=== PATIENT | female | born 1980 | race Asian ===

== ENCOUNTER 2016-08-17 08:01 | Emergency (ER) | payer BC, OTHER ==
[~2016-08-17] VITALS: Ht 157.5 cm; Wt 75.0 kg
--- NOTE | 2016-08-17 08:37 | NUR ---
US STATES THAT THE PROCEDURE CAN NOT BE DONE UNTIL 1000.
--- NOTE | 2016-08-17 08:38 | NUR ---
WATER PROVIDED TO PT FOR FILLING OF BLADDER
[2016-08-17 08:49] LABS: BILIRUBIN,URINE Negative (Negative); CLARITY,URINE Cloudy; COLOR,URINE Red; GLUCOSE, URINE (UA) Negative (Negative); LEUKOCYTE ESTERASE ,URINE 1+ (Negative); PH,URINE 6.5 (5.0 - 8.0); UROBILINOGEN,URINE 0.2 mg/dL (0.2-1.0)
--- NOTE | 2016-08-17 08:51 | NUR ---
US IN PT ROOM
[2016-08-17 09:02] LABS: RBC,URINE TNTC /HPF; URINE CENTRIFUGED VOLUME 12 mL
--- NOTE | 2016-08-17 09:48 | NUR ---
DR YE TALKS WITH DR GRACE VAZQUEZ PT. CL
[2016-08-17 10:02] VITALS: BP 134/77
== END 2016-08-17 09:59 | disposition home or self-care (01) ==
LOC: ED 08:04
DX: O26.852 Spotting complicating pregnancy, second trimester (principal); O23.42 Unspecified infection of urinary tract in pregnancy, second trimester; Z3A.14 14 weeks gestation of pregnancy
CPT/HCPCS: 76805; 81003; 81015; 87088; 99282; 99283